=== PATIENT | female | born 1980 | race Caucasian/White ===

== ENCOUNTER 2020-12-20 00:30 | Emergency (ER) | payer BC ==
[~2020-12-20] VITALS: Ht 152.4 cm; Wt 99.8 kg
[2020-12-20 00:38] VITALS: BP 158/65
[2020-12-20] MEDS: METOCLOPRAMIDE 10 MG/2 ML INJ VIAL IM ONE (01:40)
[2020-12-20] MEDS ORDERED: METO-486 PO (01:58)
[2020-12-20 02:05] VITALS: BP 158/65
--- NOTE | 2020-12-20 02:13 | NUR ---
Patient discharged with v/s stable. Written and verbal after care instructions given and explained. Patient alert, oriented and verbalized understanding of instructions. Ambulatory with steady gait. All questions addressed prior to discharge. ID band removed. Patient advised to follow up with PMD. Rx of METOCLOPRAMIDE HCI given. Patient educated on indication of medication including possible reaction and side effects. Opportunity to ask questions provided and answered.
== END 2020-12-20 02:13 | disposition home or self-care (01) ==
LOC: MED 00:30
DX: S06.0X0A Concussion without loss of consciousness, initial encounter (principal); W22.8XXA Striking against or struck by other objects, initial encounter; Y93.89 Activity, other specified; Y92.89 Other specified places as the place of occurrence of the external cause; Y99.8 Other external cause status
CPT/HCPCS: 96372; 99283; J2765